=== PATIENT | female | born 1970 | race Caucasian/White ===

== ENCOUNTER → 2017-05-02 | Outpatient (CLI) | payer OTHER | END | disposition home or self-care (01) | LOC: CFH 09:13 | PROVIDERS: ATTEND Obstetrics & Gynecology | DX: Z12.31 Encounter for screening mammogram for malignant neoplasm of breast (principal) | CPT/HCPCS: G0202 ==

== ENCOUNTER → 2018-04-30 | Outpatient (CLI) | payer OTHER ==
[~2018-04-30] MED LIST: IBUP-1222 PO; LACT1CAP35 PO; LISI-170 PO; MULT-257 PO; [UNRECOGNIZED DRUG - OTHER]
== END | disposition home or self-care (01) ==
LOC: CFH 15:57
PROVIDERS: ATTEND Obstetrics & Gynecology Gynecology
DX: N83.202 Unspecified ovarian cyst, left side (principal); N83.201 Unspecified ovarian cyst, right side
CPT/HCPCS: 76830

== ENCOUNTER 2018-09-03 10:57 | Outpatient (CLI) | payer OTHER | END 2018-09-03 23:59 | disposition home or self-care (01) | LOC: CFH 10:57 | PROVIDERS: ATTEND Obstetrics & Gynecology Gynecology | DX: N83.202 Unspecified ovarian cyst, left side (principal); N83.201 Unspecified ovarian cyst, right side | CPT/HCPCS: 76830 ==

== ENCOUNTER 2019-01-17 18:33 | Emergency (ER) | payer OTHER ==
[~2019-01-17] VITALS: Ht 160 cm; Wt 81.1 kg
[2019-01-17] MEDS ORDERED: [UNRECOGNIZED DRUG - OTHER] VG (18:59)
--- NOTE | 2019-01-17 19:08 | NUR ---
Katelin SOLANO, at bedside to evaluate pt.
--- NOTE | 2019-01-17 19:10 | NUR ---
Last oral intake: saltine crackers at 1500.
[2019-01-17] MEDS ORDERED: ONDANSETRON 2MG/ML, 2ML IVPush ONE (19:30)
[2019-01-17] MEDS ORDERED: MORPHINE SULFATE 4 MG/ML, 1ML ONE ×2 (19:31→21:06)
[2019-01-17] MEDS ORDERED: ONDANSETRON 2MG/ML, 2ML ONE (19:31)
[2019-01-17 19:35] LABS: BASOPHILS # (AUTO) 0.13 x10^3/uL (0-0.1); BASOPHILS % (AUTO) 1 % (0-1); EOSINOPHILS # (AUTO) 0.04 x10^3/uL (0-0.4); EOSINOPHILS % (AUTO) 0 % (1-7); LYMPHOCYTES # (AUTO) 1.99 x10^3/uL (1-3.4); LYMPHOCYTES % (AUTO) 14 % (22-44); MD NO; MEAN CORPUSCULAR HEMOGLOBIN 29.5 pg (27.0-34.8); MEAN CORPUSCULAR HGB CONC 33.3 g/dL (32.4-35.8); MEAN CORPUSCULAR VOLUME 88.7 fL (80-100); MEAN PLATELET VOLUME 10.4 fL (7.4-10.4); MONOCYTES % (AUTO) 4 % (2-9); NEUTROPHILS # (AUTO) 11.73 x10^3/uL (1.8-6.8); NEUTROPHILS % (AUTO) 81 % (42-75); PLATELET COUNT 293 x10^3/uL (130-400); RED BLOOD COUNT 4.73 x10^6/uL (3.82-5.3); RED CELL DISTRIBUTION WIDTH 13.7 % (9.6-15.2)
[2019-01-17] MEDS: MORPHINE SULFATE 4 MG/ML, 1ML IVPush PRN ×2 (19:43→21:11)
[2019-01-17 19:45] LABS: ALANINE AMINOTRANSFERASE 22 U/L (12-78); ALBUMIN 3.7 g/dL (3.4-5.0); ANION GAP 8 mmol/L (5-15); CALCIUM 8.6 mg/dL (8.5-10.1); CHLORIDE 105 mmol/L (98-107); CREATININE 0.78 mg/dL (0.55-1.02)
[2019-01-17 19:50] LABS: ALKALINE PHOSPHATASE 59 U/L (45-117); BILIRUBIN,TOTAL 0.2 mg/dL (0.2-1.0); TOTAL PROTEIN 7.3 g/dL (6.4-8.2)
[2019-01-17 19:59] LABS: INTERNATIONAL NORMALIZED RATIO 0.99 (0.93-1.1); PROTHROMBIN TIME 10.4 Seconds (9.6-11.5)
--- NOTE | 2019-01-17 19:59 | NUR ---
Pt to imaging, with tech, via [facility].
[2019-01-17] MEDS ORDERED: OMNIPAQUE 350 MG/ML, 100ML BOTTLE ONE (20:00)
--- NOTE | 2019-01-17 20:20 | NUR ---
task rn: pt up self with steady gait to rr to collect ua sample. ua collected and sent. vss. pt currently resting in room with family at bedside. pt reports decrease in pain after medication administration. no other needs requested at this time. call light within reach. awaiting lab results.
[2019-01-17 20:27] LABS: MICROSCOPIC NOT IND
[2019-01-17 20:31] LABS: CULTURE INDICATED? NO
--- NOTE | 2019-01-17 20:48 | NUR ---
Katelin SOLANO, at bedside to discuss ED findings and d/c information.
[2019-01-17] MEDS ORDERED: metroNIDAZOLE 500 MG TABLET PO ONE (21:00)
[2019-01-17] MEDS ORDERED: CIPROFLOXACIN 500 MG TABLET PO ONE (21:00)
[2019-01-17] MEDS ORDERED: metroNIDAZOLE 500 MG TABLET ONE (21:05)
[2019-01-17] MEDS ORDERED: CIPROFLOXACIN 500 MG TABLET ONE (21:06)
[2019-01-17 21:14] VITALS: BP 156/81
--- NOTE | 2019-01-17 21:50 | NUR ---
Patient/Caregiver given discharge instructions and they have confirmed that they understand the instructions. Patient ambulatory with steady gait.
== END 2019-01-17 22:06 | disposition home or self-care (01) ==
LOC: ED 19:47
DX: K52.9 Noninfective gastroenteritis and colitis, unspecified (principal)
CPT/HCPCS: 36415; 74177; 80053; 81003; 83690; 84702; 85025; 85610; 85730; 86850; 86900; 93005; 96374; 96375; 96376; 99284; J2270; J2405; Q9967

== ENCOUNTER 2019-07-26 15:25 | Outpatient (CLI) ==
[~2019-07-26 15:25] MED LIST changes: +[UNRECOGNIZED DRUG - OTHER] VG
== END 2019-07-26 23:59 | disposition home or self-care (01) ==
LOC: CFH 15:25
PROVIDERS: ATTEND Obstetrics & Gynecology Gynecology
DX: N83.202 Unspecified ovarian cyst, left side (principal); N83.201 Unspecified ovarian cyst, right side; Z90.710 Acquired absence of both cervix and uterus
CPT/HCPCS: 76830

== ENCOUNTER → 2019-09-15 | Outpatient (CLI) | payer OTHER ==
[2019-09-15 14:32] LABS: BASOPHILS # (AUTO) 0.04 x10^3/uL (0-0.1); BASOPHILS % (AUTO) 1 % (0-1); EOSINOPHILS # (AUTO) 0.15 x10^3/uL (0-0.4); EOSINOPHILS % (AUTO) 2 % (1-7); LYMPHOCYTES # (AUTO) 2.56 x10^3/uL (1-3.4); LYMPHOCYTES % (AUTO) 28 % (22-44); MD NO; MEAN CORPUSCULAR HEMOGLOBIN 28.5 pg (27.0-34.8); MEAN CORPUSCULAR VOLUME 86.6 fL (80-100); MEAN PLATELET VOLUME 10.8 fL (7.4-10.4); MONOCYTES # (AUTO) 0.55 x10^3/uL (0.2-0.8); MONOCYTES % (AUTO) 6 % (2-9); NEUTROPHILS # (AUTO) 6.03 x10^3/uL (1.8-6.8); NEUTROPHILS % (AUTO) 65 % (42-75); PLATELET COUNT 229 x10^3/uL (130-400); RED BLOOD COUNT 4.43 x10^6/uL (3.82-5.3); RED CELL DISTRIBUTION WIDTH 13.2 % (9.6-15.2)
[2019-09-15 14:39] LABS: ALANINE AMINOTRANSFERASE 27 U/L (12-78); ALBUMIN 3.5 g/dL (3.4-5.0); ANION GAP 7 mmol/L (5-15); CALCIUM 9.6 mg/dL (8.5-10.1); CHLORIDE 104 mmol/L (98-107); INTERNATIONAL NORMALIZED RATIO 0.94 (0.93-1.1)
[2019-09-15 14:42] LABS: ALKALINE PHOSPHATASE 59 U/L (45-117); BILIRUBIN,TOTAL 0.1 mg/dL (0.2-1.0); TOTAL PROTEIN 7.1 g/dL (6.4-8.2)
== END | disposition home or self-care (01) ==
LOC: STAR 13:21
PROVIDERS: ATTEND Specialist
DX: Z01.818 Encounter for other preprocedural examination (principal); N83.209 Unspecified ovarian cyst, unspecified side
CPT/HCPCS: 36415; 71046; 80053; 85025; 85610; 85730; 93005

== ENCOUNTER 2019-09-27 05:49 | Observation (INO) | payer OTHER ==
[~2019-09-27] VITALS: Ht 160 cm; Wt 87.1 kg
[2019-09-27] MEDS ORDERED: LACTATED RINGERS 1,000 ML IV SCH (06:45)
[2019-09-27 06:49] VITALS: BP 133/85
[2019-09-27] MEDS ORDERED: CEFOTETAN PMX 2GM/50ML 50 ML IV STA (07:19)
[2019-09-27] MEDS ORDERED: PANT40TA5 PO (07:21)
[2019-09-27] MEDS ORDERED: SCOPOLAMINE PATCH, 1.5MG PATCH.TD72 TD ONE (07:30)
[2019-09-27] MEDS ORDERED: ACETAMINOPHEN 500 MG TABLET PO ONE (07:30)
[2019-09-27] MEDS ORDERED: GABAPENTIN 300 MG CAPSULE PO ONE (07:30)
[2019-09-27] MEDS ORDERED: HALOPERIDOL 5 MG/ML IV PRN (08:00)
[2019-09-27] MEDS ORDERED: FENTANYL PF 100 MCG/2ML IV PRN (08:00)
[2019-09-27] MEDS ORDERED: hydrALAzine 20 MG/ML, 1ML IV PRN (08:00)
[2019-09-27] MEDS ORDERED: LABETALOL 5MG/ML, 20ML IV PRN (08:00)
[2019-09-27] MEDS ORDERED: OXYcodone 5 MG/5 ML ORAL.SOL UDC PO PRN (08:00)
[2019-09-27] MEDS ORDERED: MEPERIDINE/PF 25MG/ML,1ML IVPush PRN (08:00)
[2019-09-27] MEDS ORDERED: HYDROmorphone 2 MG/ML, 1ML IVPush PRN (08:00)
[2019-09-27] MEDS ORDERED: PROMETHAZINE 25 MG/ML, 1ML IV PRN (08:00)
[2019-09-27] MEDS ORDERED: FENTANYL PF 250 MCG/5ML ONE (08:05)
[2019-09-27] MEDS ORDERED: MIDAZOLAM 1 MG/ML, 2ML ONE ×2 (08:05→08:52)
[2019-09-27] MEDS ORDERED: BUPIVACAINE/PF-EPI 0.25% 1:200K ONE ×2 (08:19→10:40)
[2019-09-27] MEDS ORDERED: HEPARIN 5,000 UNITS/ML, 1ML ONE (08:19)
[2019-09-27] MEDS ORDERED: INDOCYANINE GREEN 25 MG VIAL ONE (08:19)
[2019-09-27] MEDS ORDERED: DIPHENHYDRAMINE 50 MG/ML, 1ML ONE (08:39)
[2019-09-27] MEDS ORDERED: ALBUTEROL HFA 90 MCG/SPRAY ONE (10:12)
[2019-09-27] MEDS ORDERED: PHENYLEPHRINE 10 MG/ML ONE (10:12)
[2019-09-27] MEDS ORDERED: EPINEPHRINE 1 MG/ML, 1ML ONE (10:12)
[2019-09-27] MEDS ORDERED: EPHEDRINE 50 MG/ML, 1ML ONE (10:12)
[2019-09-27] MEDS ORDERED: GLYCOPYRROLATE 0.2MG/1ML, 5ML ONE (10:13)
[2019-09-27] MEDS ORDERED: CEFAZOLIN 1,000 MG ONE (10:13)
[2019-09-27] MEDS ORDERED: PROPOFOL 10 MG/ML, 20ML ONE (10:13)
[2019-09-27] MEDS ORDERED: ONDANSETRON 2MG/ML, 2ML ONE (10:13)
[2019-09-27] MEDS ORDERED: SUCCINYLCHOLINE 20 MG/ML, 10ML ONE (10:13)
[2019-09-27] MEDS ORDERED: NEOSTIGMINE 1 MG/ML, 10ML ONE (10:13)
[2019-09-27] MEDS ORDERED: DEXAMETHASONE 4 MG/ML, 1ML ONE (10:13)
[2019-09-27] MEDS ORDERED: ROCURONIUM 10MG/ML,5ML ONE (10:13)
[2019-09-27] MEDS ORDERED: FENTANYL PF 100 MCG/2ML ONE (10:16)
[2019-09-27] MEDS ORDERED: OXYC-306 PO (10:56)
[2019-09-27] MEDS ORDERED: ONDA4TAB7 PO (10:56)
[2019-09-27] MEDS ORDERED: MEPERIDINE/PF 25MG/ML,1ML ONE (11:22)
[2019-09-27] MEDS ORDERED: OXYcodone 5 MG/5 ML ORAL.SOL UDC ONE (11:22)
[2019-09-27] MEDS ORDERED: KETOROLAC 30 MG/1 ML ONE (14:42)
[2019-09-27] MEDS ORDERED: KETOROLAC 30 MG/1 ML IVPush ONE (15:00)
[2019-09-27 15:58] LABS: MEAN CORPUSCULAR HEMOGLOBIN 28.9 pg (27.0-34.8); MEAN CORPUSCULAR HGB CONC 32.9 g/dL (32.4-35.8); MEAN CORPUSCULAR VOLUME 87.8 fL (80-100); MEAN PLATELET VOLUME 11.1 fL (7.4-10.4); PLATELET COUNT 304 x10^3/uL (130-400); RED BLOOD COUNT 5.24 x10^6/uL (3.82-5.3); RED CELL DISTRIBUTION WIDTH 14.3 % (9.6-15.2)
[2019-09-27 16:18] LABS: MD YES
[2019-09-27] MEDS: LACTATED RINGERS 1,000 ML IV SCH (17:25)
[2019-09-27] MEDS ORDERED: ONDANSETRON 2MG/ML, 2ML IVPush PRN (17:30)
[2019-09-27] MEDS ORDERED: morphine SULFATE 10 MG/ML, 1ML IVPush PRN (17:30)
[2019-09-27] MEDS ORDERED: OXYcodone/APAP 5/325MG TABLET PO PRN (17:30)
[2019-09-27 18:00] LABS: BAND#(MANUAL) 6.26 x10^3/uL; BANDS%(MANUAL) 20 % (0-7); LYMPH#(MANUAL) 0.63 x10^3/uL (1-3.4); LYMPHS% (MANUAL) 2 % (22-44); MONOS#(MANUAL) 0.31 x10^3/uL (0.3-2.7); MONOS% (MANUAL) 1 % (2-9); SEGS% (MANUAL) 77 % (42-75)
[2019-09-27 18:01] LABS: <PLATELET ESTIMATE> ADEQUATE; <RBC MORPHOLOGY> NORMAL; LARGE PLATELETS 1+
[2019-09-27 19:55] VITALS: BP 109/66
[2019-09-27] MEDS: KETOROLAC 30 MG/1 ML IVPush PRN (20:16)
[2019-09-28 00:41] VITALS: BP 96/56
[2019-09-28] MEDS: LACTATED RINGERS 1,000 ML IV SCH (01:25)
[2019-09-28] MEDS: KETOROLAC 30 MG/1 ML IVPush PRN (06:21)
[2019-09-28 07:18] VITALS: BP 97/60
[2019-09-28] MEDS ORDERED: FLU VACC QS2019-20 36MOS UP/PF 0.5 ML IM-VACC ONE (11:00)
== END 2019-09-28 11:32 | disposition home or self-care (01) ==
LOC: OUT 05:49 → INTOOBSV 18:31 → 4NW 18:31 → DCLOUNGE 09-28 11:24
PROVIDERS: ADMIT Obstetrics & Gynecology; ATTEND Obstetrics & Gynecology
DX: N83.291 Other ovarian cyst, right side (principal); N83.292 Other ovarian cyst, left side; R10.2 Pelvic and perineal pain; Z23 Encounter for immunization
CPT/HCPCS: 36415; 58661; 58662; 85025; 86850; 86900; 86923; 88305; 90471; 90686; 96374; 96376; G0378; J0171; J0330; J1100; J1200; J1885; J2175; J2250; J2370; J2405; J2704; J2710; J3010; J3490; J7120; J0690; J1644